=== PATIENT | male | born 1960 | race Two or more races ===

== ENCOUNTER 2024-08-15 08:45 | Outpatient (AMB) | payer MEDICAID, SELFPAY ==
[2024-08-15 09:07] VITALS: BP 134/73; PULSE 65; RESP 17; TEMP 36.3; O2SAT 97; BMI 26.6
--- NOTE | 2024-08-15 09:07 | ORTHONT_ITS ---
Vital signs 08/15/24 09:07 Height 1.7 m Height Method Stated Weight 77.337 kg Weight Measurement Method Standing Scale BMI 26.6 BP 134/73 H Blood Pressure Source Automatic Cuff Blood Pressure Location Right Upper Arm Position Sitting Respiration 17 Pulse 65 Pulse Source Monitor Temp 97.3 F Temp Source Temporal Artery Scan Pulse Oximetry (%) 97 Oxygen Delivery Method Room Air Med/Allergies Allergies & Medications Allergies No Known Allergies Allergy (Verified 08/15/24 09:09) Medication Reconciliation meloxicam 7.5 mg tablet 7.5 mg PO QDAY #45 tabs 08/15/24 [Rx] tadalafil 5 mg tablet 5 mg PO QDAY 08/15/24 [History Confirmed 08/15/24] Exam Exam Patient is in no acute distress and is cooperative with the examination today. Breathing is nonlabored. Patient has a normal mood and affect. Bilateral extremities were evaluated and demonstrates sensation intact to light touch. Palpable pedal pulses are present. No significant edema is present. Bilateral hips were examined. The patient has no pain with log roll of the hips. Internal rotation to 30 degrees and external rotation to 30 degrees is painless. Negative FADIR. Right knee was examined today. The right knee is in reasonable alignment. Range of motion from 0-120 degrees. Knee is stable to varus and valgus as well as AP translation with <5mm. Patient has a negative McMurrays. There is no pain with patellofemoral compression and no crepitus noted. The knee is nontender to palpation. Left knee was examined today. The left knee is in varus alignment. Range of motion from 0-115 degrees. Knee is stable to varus and valgus as well as AP translation with <5mm. Patient has a negative McMurrays. There is no pain with patellofemoral compression and no crepitus noted. The knee is tender to palpation medially. Assessment and Plan Problem List (1) Arthritis of left knee: Status: Acute Plan: Patient is a pleasant 63-year-old male with left knee pain and left knee arthritis. We discussed different treatment options. We will need to see x-rays and we will go from there We also sent him a prescription for meloxicam Office Procedures GNS Level of Care Nursing/Assessment Patient Status: Initial/New Patient Nursing Assessment/Reassesment: Medication Reconciliation and Update PMH in EMR Coordination of Care: Complex Care and Chronic Disease 1-5, Education Complex Pt/Fam, Consent,records obtained, informed consent, 1 Ins Authorization, Lab and Imaging orders, Results/Orders obtained and Staff clarify orders Special Needs: Language special needs (BOLIVIAN ) New Patient Charge New Patient Point Assignment: 1109 New Patient Point Charge: PRECAST MOLDER Level 3 (7294-2325) MA Intake Visit Data Collection New Patient or Established: New Patient (never been to [facility]) Reason for Visit:: LT KNEE PAIN Seen by Clinical Staff ONLY (RN/MA): No Driver License Technician Required: Yes PCP or OBGYN visit in last 3 months: Yes Hx Now: No Do You Feel Safe at Home: Yes Authorities Contacted: N/A Questionairres Past Medical History Past Medical History Have you ever been diagnosed with any of the following: Respiratory Problems Smoking: No Smoking Cessation Counseling: No Smoking Exposure: No Subjective Visit Visit for: new patient and knee (LEFT KNEE ) Immunization / Flu Flu Vaccine in the Last 12 Months: Yes Flu Vaccine Exclusion Criteria: Already Received History of Present Illness Chief complaint: Left knee pain Jairo is a pleasant 63-year-old male with a left knee pain and left knee arthritis according to the report. He is having left knee pain that increased within the last 3 months. He has not had any conservative treatment Personal History Red flag PMH: none Pain Pain level (0-10): 5 Pain duration: 2 MONTHS Pain location: anterior (LEFT KNEE ) Pain quality: sharp Pain timing: night, increases with activity and stairs Associated signs & symptoms: stiffness Ambulatory data Ambulatory device: none Walking distance (minutes): 5 Treatments Number of previous injections: 0 Number of Physical Therapy sessions: 0 Improvement with NSAIDS: n/a Review of Systems Review of Systems: All systems negative unless otherwise noted in HPI.
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
== END 2024-08-15 09:33 | disposition home or self-care (01) ==
PROVIDERS: Supervising Provider Orthopaedic Surgery Adult Reconstructive Orthopaedic Surgery; Visit Provider Orthopaedic Surgery Adult Reconstructive Orthopaedic Surgery
DX: M17.12 Unilateral primary osteoarthritis, left knee (principal); M25.562 Pain in left knee
CPT/HCPCS: 73564; 99203; G0463

== ENCOUNTER 2024-09-28 14:23 | Outpatient (AMB) | payer MEDICAID, SELFPAY ==
[2024-09-28 14:33] VITALS: BP 124/69; PULSE 67; RESP 18; TEMP 36.8; O2SAT 96; BMI 27.0
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
== END 2024-09-28 14:49 | disposition home or self-care (01) ==
LOC: HODSRG 14:23
PROVIDERS: Supervising Provider Orthopaedic Surgery Adult Reconstructive Orthopaedic Surgery; Visit Provider Orthopaedic Surgery Adult Reconstructive Orthopaedic Surgery
DX: M17.12 Unilateral primary osteoarthritis, left knee (principal); M25.562 Pain in left knee
CPT/HCPCS: 20610; 99213; J3301; J3490; G0463

== ENCOUNTER 2025-03-08 14:13 | Outpatient (AMB) | payer MEDICAID, SELFPAY ==
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
[2025-03-08 14:31] VITALS: BP 150/76; PULSE 79; RESP 18; TEMP 37; O2SAT 95; BMI 27.0
== END 2025-03-08 14:57 | disposition home or self-care (01) ==
PROVIDERS: Supervising Provider Orthopaedic Surgery Adult Reconstructive Orthopaedic Surgery; Visit Provider Orthopaedic Surgery Adult Reconstructive Orthopaedic Surgery
DX: M25.562 Pain in left knee (principal); M17.0 Bilateral primary osteoarthritis of knee
CPT/HCPCS: 20610; 99213; J1010; J2795; G0463

== ENCOUNTER 2025-05-03 14:28 | Outpatient (AMB) | payer MEDICAID, SELFPAY ==
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
[2025-05-03 14:41] VITALS: BP 134/70; PULSE 65; RESP 18; TEMP 36.7; O2SAT 97; BMI 27.0
== END 2025-05-03 14:56 | disposition home or self-care (01) ==
LOC: HODSRG 14:28
PROVIDERS: PCP Student in an Organized Health Care Education/Training Program; Referring Provider Student in an Organized Health Care Education/Training Program; Supervising Provider Orthopaedic Surgery Adult Reconstructive Orthopaedic Surgery; Visit Provider Orthopaedic Surgery Adult Reconstructive Orthopaedic Surgery
DX: M17.0 Bilateral primary osteoarthritis of knee (principal)
CPT/HCPCS: 99213; G0463